=== PATIENT | female | born 1965 | race Caucasian/White ===

== ENCOUNTER 2016-11-20 06:49 | Day surgery (SDC) | payer MEDICARE, OTHER ==
[2016-11-20] MEDS ORDERED: Lactated Ringers 1,000 ML IV SCH (07:00)
[2016-11-20] MEDS ORDERED: Propofol 200 MG/20 ML SDV IV ONE (08:40)
[2016-11-20] MEDS ORDERED: fentaNYL 100 MCG/2 ML SDV IV ONE (08:40)
[2016-11-20] MEDS ORDERED: Midazolam 1 MG/ML 2 ML SDV IV ONE (08:40)
[2016-11-20] MEDS ORDERED: Lidocaine 2% 100 MG/5 ML Syringe IVPUSH ONE (08:40)
--- NOTE | 2016-11-20 09:23 | PCM.OPNOTE ---
- General Post-Op/Procedure Note Date of Surgery/Procedure: 11/20/16 Operative Procedure(s): c scope Findings: normal colon Pre Op Diagnosis: abd pain rlq Post-Op Diagnosis: no colon Anesthesia Technique: MAC Primary Surgeon: Isrrael Damon Anesthesia Provider: Essence Cavazos Pathology: none Complications: None Condition: Stable Free Text/Narrative:: see dictation
--- NOTE | 2016-11-20 10:37 | OR ---
DATE OF OPERATION: 11/20/2016 SURGEON: Isrrael Damon MD PROCEDURE PERFORMED: Colonoscopy. PREOPERATIVE DIAGNOSIS: History of abdominal pain and due for screening colonoscopy. POSTOPERATIVE DIAGNOSIS: Normal scope. INDICATIONS FOR PROCEDURE: This is a 51-year-old white female who has a history of some intermittent right lower quadrant abdominal pain. She is also due for a followup colonoscopy. She was offered and accepted same. DESCRIPTION OF OPERATION: After an excellent IV sedation was administered, digital rectal exam was performed. No marked abnormality was noted. The flexible colonoscope was inserted and advanced to the cecum without difficulty. The following findings were noted. Ascending colon, unremarkable. Attempts to intubate the terminal ileum were unsuccessful. Transverse colon, unremarkable. Descending colon, unremarkable. Sigmoid and rectum, unremarkable. Colon was deflated, scope was removed. The patient tolerated the procedure well and was taken to Recovery in good condition. /[id number] /MODL
[2016-11-20 11:05] VITALS: BP 117/66
== END 2016-11-20 10:30 | disposition home or self-care (01) ==
LOC: FB.SDS 06:49
PROVIDERS: ATTEND Surgery
DX: R10.31 Right lower quadrant pain (principal); R10.32 Left lower quadrant pain; K21.9 Gastro-esophageal reflux disease without esophagitis; G47.30 Sleep apnea, unspecified; F32.9 Major depressive disorder, single episode, unspecified; K58.9 Irritable bowel syndrome, unspecified; F41.9 Anxiety disorder, unspecified; G40.909 Epilepsy, unspecified, not intractable, without status epilepticus; G43.019 Migraine without aura, intractable, without status migrainosus; G62.9 Polyneuropathy, unspecified; M19.90 Unspecified osteoarthritis, unspecified site; Z79.899 Other long term (current) drug therapy; Z91.030 Bee allergy status; Z91.041 Radiographic dye allergy status; Z88.8 Allergy status to other drugs, medicaments and biological substances; Z98.51 Tubal ligation status; Z90.79 Acquired absence of other genital organ(s); Z98.1 Arthrodesis status; Z90.710 Acquired absence of both cervix and uterus
CPT/HCPCS: 00902; 36415; 45378; 82565; J2250; J2704; J3010; J7120

== ENCOUNTER 2017-08-23 21:23 | Emergency (ER) | payer MEDICARE, OTHER ==
[2017-08-23] MEDS ORDERED: Ketorolac 60 MG/2 ML SDV IM ONE (22:08)
[2017-08-23] MEDS ORDERED: cefTRIAXone 1,000 MG VIAL IM ONE (22:21)
--- NOTE | 2017-08-23 22:30 | EDM.PDOC ---
ED HPI GENERAL MEDICAL PROBLEM - General Chief Complaint: ENT Problem Stated Complaint: TOOTH PAIN Time Seen by Provider: 08/23/17 21:25 Source of Information: Reports: Patient, Family History Limitations: Reports: No Limitations - History of Present Illness INITIAL COMMENTS - FREE TEXT/NARRATIVE: 52 y.o.w.f came to the ed with her SO due to chronic, worsening dental pain. Pt was a smoker in the past. Most of her teeth are decayed, or broken off at the base. Pt was concerned about an abscess at her left jaw. No F/C/N/V or any other acute medical issues. Temp 37.3. Please check the nursing not for vitals Onset: Gradual Onset Date: 08/22/17 Onset Time: 08:00 Duration: Week(s):, Getting Worse, Intermittent Location: Reports: Face Quality: Reports: Burning, Dull, Pressure, Same as Previous Episode Severity: Moderate Improves with: Reports: Rest Worsens with: Reports: Movement Context: Reports: Other (poor oral hygiene, poor dentition) tooth/oral Pain Score (Numeric/FACES): 6 - Related Data Allergies Allergy/AdvReac Type Severity Reaction Status Date / Time doxycycline Allergy Unknown Shortness Verified 08/23/17 21:37 of Breath bee venom protein (honey bee) Allergy Anaphylactic Verified 08/23/17 21:37 Shock Iodinated Contrast- Oral and Allergy Difficulty Verified 08/23/17 21:37 IV Dye Breathing [Iodinated Contrast Media - Oral and] metoclopramide HCl Allergy Agitation Verified 08/23/17 21:37 [From Reglan] povidone-iodine Allergy Rash Verified 08/23/17 21:37 [From Betadine] soap [From Betadine] Allergy Rash Verified 08/23/17 21:37 walnut Allergy Edema Verified 08/23/17 21:37 sumatriptan [From Imitrex] AdvReac Diarrhea Verified 08/23/17 21:37 dhe Allergy Hypotension Uncoded 07/25/15 18:40 Home Meds: Home Meds Amitriptyline [Elavil] 100 mg PO BEDTIME 03/29/13 [History] Cholecalciferol (Vitamin D3) [D3 Dots] 1 tab PO DAILY 03/29/13 [History] No.25/Iron/FA #6/DHA [Prena1 Softgel] 1 tab PO DAILY 03/29/13 [History] Sertraline [Zoloft] 250 mg PO BEDTIME 03/29/13 [History] Celecoxib [CeleBREX] 200 mg PO DAILY 04/01/15 [History] Omeprazole 40 mg PO DAILY 04/01/15 [History] DULoxetine [Cymbalta] 30 mg PO DAILY 03/26/16 [History] Ferrous Sulfate [Iron] 325 mg PO DAILY 03/26/16 [History] Gabapentin [Neurontin] 300 - 600 mg PO Q6H PRN 03/26/16 [History] Polyethylene Glycol 3350 [MiraLAX] 17 gm PO DAILY PRN 03/26/16 [History] Potassium Chloride [Klor-Con 8] 16 meq PO BID 03/26/16 [History] Rizatriptan [Maxalt TRUCK HOP] 10 mg PO ASDIRECTED PRN 03/26/16 [History] Dicyclomine [Bentyl] 20 mg PO TID 11/19/16 [History] Ondansetron [Zofran] 4 mg PO Q6H PRN 11/19/16 [History] Triamcinolone Acetonide [Triamcinolone Acetonide 0.1% Crm] 1 applic TOP BID [History] Acetaminophen/oxyCODONE [Percocet 325-5 MG] 1 each PO Q6HR PRN #12 tab 08/23/17 [Rx] Amoxicillin/Potassium Clav [Augmentin 875-125 Tablet] 1 each PO BID #20 tablet 08/23/17 [Rx] Past Medical History HEENT History: Reports: Impaired Vision, Other (See Below) Other HEENT History: TEMPOROMANDIBULAR JAW DYSFUNCTION Cardiovascular History: Reports: None Respiratory History: Reports: Sleep Apnea Gastrointestinal History: Reports: GERD, Hemorrhoids, Irritable Bowel Syndrome, Other (See Below) Other Gastrointestinal History: HERNANDEZ'S ESOPHAGUS, LIVER DISEASE. ULCER, DIAPHRAGMATIC HERNIA. 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 Restless leg Psychiatric History: Reports: Anxiety, Depression, Panic Attack Endocrine/Metabolic History: Reports: Obesity/BMI 30+ Hematologic History: Reports: Anemia, Other (See Below) Other Hematologic History: CHRONIC HYPOKALEMIA Immunologic History: Reports: None Oncologic (Cancer) History: Reports: None Dermatologic History: Reports: None - Infectious Disease History Infectious Disease History: Reports: Chicken Pox, Rubella - Past Surgical History Head Surgeries/Procedures: Reports: None HEENT Surgical History: Reports: Tonsillectomy Cardiovascular Surgical History: Reports: None Respiratory Surgical History: Reports: None GI Surgical History: Reports: Colonoscopy, EGD Female Surgical History: Reports: Section, Hysterectomy, Tubal Ligation Other Female Surgeries/Procedures: CS X3, VAGINAL HYSTERECTOMY, LEFT BREAST LUMPECTOMY Neurological Surgical History: Reports: Lumbar Spine, Spinal Fusion Musculoskeletal Surgical History: Reports: Shoulder Surgery Other Musculoskeletal Surgeries/Procedures:: back surgery, (SPINAL FUSION WITH PEDICLE SCREW FIXATION L4-5), OPEN REDUCTION LEFT HUMEROUS WITH IF WITH ALLO GRAFT, LEFT SHOULDER SURGERY, ARTHROPATHY, CHRONIC PAIN SYNDROME Oncologic Surgical History: Reports: None Dermatological Surgical History: Reports: None Social & Family History - Tobacco Use Smoking Status *Q: Never Smoker Second Hand Smoke Exposure: No - Caffeine Use Caffeine Use: Reports: None - Recreational Drug Use Recreational Drug Use: No Drug Use in Last 12 Months: No ED ROS ENT - Review of Systems Review Of Systems: See Below Constitutional: Reports: No Symptoms HEENT: Reports: Dental Pain Respiratory: Reports: No Symptoms Cardiovascular: Reports: No Symptoms Endocrine: Reports: No Symptoms GI/Abdominal: Reports: No Symptoms : Reports: No Symptoms Musculoskeletal: Reports: No Symptoms Skin: Reports: No Symptoms Neurological: Reports: No Symptoms Psychiatric: Reports: No Symptoms Hematologic/Lymphatic: Reports: No Symptoms Immunologic: Reports: No Symptoms ED EXAM, ENT - Physical Exam Exam: See Below Exam Limited By: No Limitations General Appearance: Alert, WD/WN, No Apparent Distress Eye Exam: Bilateral Eye: EOMI, Normal Inspection Ears: Normal External Exam, Normal Canal Nose: Normal Inspection, Normal Mucousa Mouth/Throat: Dental Pain, Dental Tenderness, Dental Trauma (old!), Dry Mucous Membrane, Gum Swelling Head: Atraumatic, Normocephalic Neck: Normal Inspection, Supple Respiratory/Chest: No Respiratory Distress, Lungs Clear, Normal Breath Sounds, Chest Non-Tender Cardiovascular: Normal Peripheral Pulses, Regular Rate, Rhythm, No Edema, No Gallop GI/Abdominal: Normal Bowel Sounds, Soft, Non-Tender, No Organomegaly (Female) Exam: Deferred Rectal (Female) Exam: Deferred Back: Normal Inspection, Full Range of Motion Extremities: Normal Inspection, Normal Range of Motion Neurological: Alert, Oriented, CN II-XII Intact, Normal Cognition Psychiatric: Normal Affect, Normal Mood Skin: Warm, Dry, Intact, Normal Color, No Rash Lymphatic: No Adenopathy Course - Vital Signs Text/Narrative:: 52 y.o.w.f came to the ed with her SO due to chronic, worsening dental pain. Pt was a smoker in the past. Most of her teeth are decayed, or broken off at the base. Pt was concerned about an abscess at her left jaw. No F/C/N/V or any other acute medical issues. Temp 37.3. Please check the nursing not for vitals PE: WNWD W F with poor dentition, chronic, getting worse. Imaging: Chronic diffuse periodontal disease in the remaining teeth, no signes of tissue abscess. Impression: Chronic diffuse periodontal disease in the remaining teeth, Gingivitis Tx: Mouth care, Rocephin, Toradol Reexam: Improved Plan: D/C with instructions Last Recorded V/S: Last Vital Signs Temp 37.0 C 08/23/17 21:25 Pulse Resp BP Pulse Ox - Orders/Labs/Meds Orders: Active Orders 24 hr Category Date Time Status Max Facial Sinus wo Cont [CT] Stat Exams 08/23/17 21:34 Taken Labs: Laboratory Tests 08/23/17 08/23/17 Range/Units 21:35 21:35 WBC 7.7 (4.5-12.0) X10-3/uL RBC 4.30 (3.23-5.20) x10(6)uL Hgb 12.1 (11.5-15.5) g/dL Hct 35.2 (30.0-51.3) % MCV 81.9 (80-96) fL MCH 28.1 (27.7-33.6) pg MCHC 34.3 (32.2-35.4) g/dL RDW 13.0 (11.5-15.5) % Plt Count 261 (125-369) X10(3)uL MPV 7.8 (7.4-10.4) fL Neut % (Auto) 69.7 (46-82) % Lymph % (Auto) 23.6 (13-37) % Victoria % (Auto) 4.3 (4-12) % Eos % (Auto) 2 (1.0-5.0) % Baso % (Auto) 0 (0-2) % Neut # (Auto) 5.4 (1.6-8.3) # Lymph # (Auto) 1.8 (0.6-5.0) # Victoria # (Auto) 0.3 (0.0-1.3) # Eos # (Auto) 0.2 (0.0-0.8) # Baso # (Auto) 0.0 (0.0-0.2) # Sodium 139 (135-145) mmol/L Potassium 3.3 L (3.5-5.3) mmol/L Chloride 99 L (100-110) mmol/L Carbon Dioxide 30 (21-32) mmol/L BUN 11 (7-18) mg/dL Creatinine 0.7 (0.55-1.02) mg/dL Est Cr Clr Drug Dosing TNP Estimated GFR (MDRD) > 60 (>60) BUN/Creatinine Ratio 15.7 (9-20) Glucose 108 (80-116) mg/dL Calcium 9.2 (8.6-10.2) mg/dL Meds: Medications Discontinued Medications Generic Name Dose Route Start Last Admin Trade Name Freq PRN Reason Stop Dose Admin Ceftriaxone Sodium 1,000 mg 08/23/17 22:21 08/23/17 22:25 Rocephin IM 08/23/17 22:22 1,000 mg ONETIME ONE Administration Ketorolac Tromethamine 60 mg 08/23/17 22:08 08/23/17 22:15 Toradol IM 08/23/17 22:09 60 mg ONETIME ONE Administration Departure - Departure Time of Disposition: 22:25 Disposition: Home, Self-Care 01 Condition: Good Clinical Impression: Periodontal disease, unspecified, Gingivitis, Poor dentition - Discharge Information Prescriptions: Acetaminophen/oxyCODONE [Percocet 325-5 MG] 1 each PO Q6HR PRN #12 tab PRN Reason: for severe pain only Amoxicillin/Potassium Clav [Augmentin 875-125 Tablet] 1 each PO BID #20 tablet Instructions: Gingivitis, [id number], Diet and Dental Disease Referrals: Todd Anna MD [Primary Care Provider] - Forms: ED Department Discharge Additional Instructions: Please apply mouth hygiene with tooth cleaning and mouth wash. Please see your dentist ([facility]?)a.s.a.p. Please come back if your symptoms get worse acutely - My Orders Last 24 Hours: My Active Orders 08/23/17 21:34 Max Facial Sinus wo Cont [CT] Stat - Assessment/Plan Last 24 Hours: My Active Orders 08/23/17 21:34 Max Facial Sinus wo Cont [CT] Stat
== END 2017-08-23 22:40 | disposition home or self-care (01) ==
LOC: FB.ED 21:23
DX: K05.10 Chronic gingivitis, plaque induced (principal); K21.9 Gastro-esophageal reflux disease without esophagitis; F32.9 Major depressive disorder, single episode, unspecified; Z79.899 Other long term (current) drug therapy; Z88.8 Allergy status to other drugs, medicaments and biological substances; Z91.018 Allergy to other foods; Z91.041 Radiographic dye allergy status; Z88.1 Allergy status to other antibiotic agents; Z91.030 Bee allergy status
CPT/HCPCS: 36415; 70486; 80048; 85025; 96372; 99284; J0696; J1885; 99283